=== PATIENT | female | born 1990 | race Two or more races ===

== ENCOUNTER → 2018-06-20 09:25 | Outpatient (CLI) | payer OTHER, SELFPAY ==
[2018-06-20 10:06] LABS: Absolute Lymphocyte Count 1.28 X10^3/ul (0.83-4.51); Absolute Neutrophil Count 5.5 X10^3/uL (2.0-7.7); Basophil# 0.02 X10^3/uL; Basophil% 0.3 % (0-1); Eosinophil# 0.21 X10^3/uL; Eosinophils% 2.9 % (0-5); Hematocrit 42.6 % (37-47); Hemoglobin 13.9 g/dl (12.0-15.0); Lymphocyte # 1.28 X10^3/ul (4.0); Lymphocyte % 17.5 % (19-41); Mean Corp Hgb Conc 32.6 g/gl (32-36); Mean Corpuscular Volume 85.9 fL (81-99); Mean Platelet Vol. 11.8 fl (6.2-12.0); Monocyte# 0.34 X10^3/uL; Monocyte% 4.6 % (0-10); Neutrophil # 5.45 X10^3/uL (2.7-7.7); Neutrophil % 74.4 % (47-70); Platelet Count 240 K/mm3 (150-450); RBC Distribution Width CV 12.7 % (11.6-14.6); RBC Distribution Width SD 39.3 fl (35.1-43.9); Red Blood Count 4.96 M/mm3 (4.2-5.4); White Blood Count 7.3 K/mm3 (4.4-11.0)
[2018-06-20 10:13] LABS: POSITIVE COUNT NO; POSITIVE DIFFERENTIAL NO; POSITIVE MORPHOLOGY NO
[2018-06-20 10:31] LABS: Vitamin B12 723 pg/mL (211-911); Vitamin D,25 Hydroxy 10.9 ng/mL (29.95-100.01)
[2018-06-20 10:40] LABS: ALB/GLOB Ratio 1.3 RATIO (0.9-2.4); AST(SGOT) 14 U/L (15-37); Alanine Aminotransfer ALT/SGPT 17 U/L (13-56); Albumin, Serum 4.7 g/dL (3.2-5.0); Alkaline Phosphatase 84 U/L (45-117); Anion Gap 7 (5-15); BUN 10 mg/dL (7-18); BUN/Creat Ratio 15.8 RATIO (10-20); Calcium,Total 8.8 mg/dL (8.5-10.1); Chloride 106 mmol/L (98-107); Creatinine, Serum 0.63 mg/dL (0.55-1.02); EST Glomerular Filtration Rate 121 mL/min (>60); Est Glom Filt Rate - Afr Amer 146 mL/min (>60); Ferritin 34 ng/mL (8-252); Globulin 3.6 g/dL (2.2-4.2); Glucose 81 mg/dL (74-106); Potassium 3.7 mmol/L (3.5-5.1); Protein, Total 8.3 g/dL (6.4-8.2); Sodium Level 139 mmol/L (136-145); T4 Free Direct 1.22 ng/dL (0.76-1.46); Thyroid Stim Hormone (TSH) 0.72 uIU/mL (0.358-3.74)
[2018-06-23 12:07] LABS: Anti-Centromere B Ab <0.2 AI (0.0-0.9); Anti-Chromatin <0.2 AI (0.0-0.9); Anti-Jo <0.2 AI (0.0-0.9); Anti-Scleroderma-70 AB <0.2 AI (0.0-0.9); RNP Ab <0.2 AI (0.0-0.9); SJOGREN'S Anti-SS-A test < 0.2 AI (0.0-0.9); SJOGREN'S Anti-SS-B test < 0.2 AI (0.0-0.9); Smith Ab <0.2 AI (0.0-0.9)
[2018-06-23 12:13] LABS: Anti-dsDNA Ab 7 IU/mL (0-9)
[2018-06-25 11:46] LABS: Immunoglobulin E 2 IU/mL (6-495)
== END ==
PROVIDERS: Family Provider Family Medicine; PCP Family Medicine; Referring Provider Family Medicine; Visit Provider Family Medicine
DX: K90.0 Celiac disease (principal); H04.129 Dry eye syndrome of unspecified lacrimal gland
CPT/HCPCS: 80053; 82306; 82607; 82728; 82746; 82785; 84439; 84443; 85025; 86225; 86235

== ENCOUNTER 2022-04-24 18:26 | Emergency (ER) | payer OTHER, SELFPAY ==
[2022-04-24 18:27] VITALS: BP 163/83; PULSE 125; RESP 16; TEMP 36.8; O2SAT 99; BMI 26.6
[2022-04-24] MEDS: Mag Hydrox/Al Hydrox/Simeth 30 ML UDC PO (19:36)
[2022-04-24] MEDS: 0.9% Normal Saline 1,000 ML 1000 ML IV (19:36)
--- NOTE | 2022-04-24 19:46 | ED.VIS.GI ---
HPI HPI - GI History of Present Illness Chief Complaint: Abd Pain Informant: patient Abdominal Pain/Flank Pain Onset: Yesterday Context: Sudden Onset Timing: Intermittent Quality: Burning Location: Epigastric, RUQ, LUQ and - (Chest) Worsened by: Food (Spicy foods) Relieved by: Antacids Nausea/Vomiting/Emesis GI Symptom: Negative for Nausea or Vomiting Diarrhea/Melena/Hematochezia GI Symptom: Negative for Diarrhea, Melena or Hematochezia Associated Symptoms Associated Symptoms: Positive for Frequency; Negative for Dysuria or Hematuria Narrative Narrative: Patient presents with upper abdominal pain that began yesterday. Patient states it has been intermittent. Patient describes it as burning. Patient states the pain is over the upper abdomen and radiates up into her chest. Patient states she has been trying to avoid spicy foods because she knows it will make it worse. Patient states she took some Tums which helped mildly. Patient denies any nausea or vomiting. Patient states her pain does radiate into her back. Patient admits to some urinary frequency. Patient denies any dysuria or hematuria. Patient states her last menstrual period started today. [facility] Medical History Celiac disease Home Medications omeprazole 20 mg capsule,delayed release 20 mg PO DAILY #30 CAPSULES 04/24/22 [Rx Last Taken Unknown] Allergy/AdvReac Type Severity Reaction Status Date / Time amoxicillin Allergy Hives Verified 04/24/22 18:27 Social History Smoking Status: Never smoker ROS ROS ED Constitutional Constitutional ED: Denies chills or fever(s) Eyes Eyes: Denies blurry vision or change in vision ENT ENT ED: Reports sore throat; Denies rhinorrhea Cardiovascular Cardiovascular: Reports chest pain; Denies palpitations Respiratory/Chest Respiratory/Chest: Reports cough; Denies dyspnea Gastrointestinal Gastrointestinal: Reports abdominal pain; Denies nausea or vomiting Genitourinary Genitourinary ED: Denies dysuria or hematuria Musculoskeletal Musculoskeletal: Reports back pain; Denies neck pain Integumentary Denies abscess or rash Neurologic Neurologic: Denies headache(s) or weakness Allergic/Immunologic Allergic/Immunologic ED: Denies mouth swelling or urticaria EXAM Physical Exam Const Vital Signs: 04/24/22 18:27 Temperature 98.3 F Temperature Source Temporal Pulse Rate 125 H Respiratory Rate 16 Blood Pressure 163/83 H Blood Pressure Mean 109 Pulse Ox 99 Oxygen Delivery Method Room Air Positive well nourished and well developed General Appearance ED: well developed and NAD HEENT Reports moist mucous membranes Neck supple and no JVD Resp normal respiratory effort and clear to auscultation bilaterally Cardio regular rate, regular rhythm and no murmurs GI normal to inspection, nondistended, normoactive bowel sounds Palpation: soft and tender epigastric; Negative for guarding or rebound tenderness present Extremity normal to inspection General Extremety ED: Negative for edema or tenderness General Extremity: Negative for edema Neuro oriented x3, CN's II-XII intact bilaterally, moves all extremities and no sensory deficits noted Sensorium / Orientation: alert Motor Exam: strength 5/5 throughout Psych mental status grossly normal Skin no rashes or lesions noted MDM MDM MDM Narrative Medical decision making narrative: Patient was given a GI cocktail here. Patient was given IV fluids. CBC was obtained and was reviewed. There is a mild leukocytosis of 12.1. Comprehensive metabolic profile was obtained and was reviewed. Chloride was 108, glucose was 108. The remainder was within normal limits. Lipase was obtained and was normal. Urinalysis was obtained. There is a leukocyte esterase of 100 and occult blood of 250. There is 0-5 white blood cells and 0-5 red blood cells. Serum hCG was obtained and was negative. Patient is feeling better on reevaluation. Patient states her pain has resolved. Patient was given a dose of omeprazole here. Patient was given a prescription for omeprazole. Patient was instructed to follow-up with her primary care physician in 5 to 7 days for reevaluation. Patient understood and was agreeable with the plan. All questions were answered. Lab Data Attestation: I reviewed the patient's lab results. Labs: Laboratory Results - last 24 hr 04/24/22 04/24/22 04/24/22 19:32 19:46 19:46 WBC 12.1 H RBC 4.99 Hgb 13.8 Hct 41.6 MCV 83.4 MCH 27.7 MCHC 33.2 RDW Std Deviation 38.4 RDW Coeff of Jean-Pierre 12.7 Plt Count 378 MPV 9.9 Immature Gran % (Auto) 0.300 Neut % (Auto) 83.3 H Lymph % (Auto) 10.3 L [place] % (Auto) 4.7 Eos % (Auto) 1.2 Baso % (Auto) 0.2 Absolute Neuts (auto) 10.0 H Absolute Lymphs (auto) 1.24 Nucleated RBC % 0 Sodium 140 Potassium 3.8 Chloride 108 H Carbon Dioxide 27.0 Anion Gap 5 BUN 7 Creatinine 0.57 Estim Creat Clear Calc 129.86 Est GFR (MDRD) Af Amer 159 Est GFR (MDRD) Non-Af 132 BUN/Creatinine Ratio 12.2 Glucose 108 H Calcium 9.4 Total Bilirubin 0.60 AST 12 L ALT 20 Alkaline Phosphatase 94 Total Protein 8.3 H Albumin 4.3 Globulin 4.0 Albumin/Globulin Ratio 1.1 Lipase 96 Serum , Qual Urine Color Straw Urine Clarity Sl. Cloudy Urine pH 7.0 Ur Specific [place] 1.010 Urine Protein Negative Urine Glucose (UA) Normal Urine Ketones Negative Urine Occult Blood 250 H Urine Nitrite Negative Urine Bilirubin Negative Urine Urobilinogen Normal Ur Leukocyte Esterase 100 H Urine RBC 0-5 SEEN Urine WBC 0-5 SEEN Ur Squamous Epith Cells 0-5 SEEN Urine Bacteria 1+ Urine Mucus 0 SEEN 04/24/22 19:46 WBC RBC Hgb Hct MCV MCH MCHC RDW Std Deviation RDW Coeff of [place] Plt Count MPV Immature Gran % (Auto) Neut % (Auto) Lymph % (Auto) [place] % (Auto) Eos % (Auto) Baso % (Auto) Absolute Neuts (auto) Absolute Lymphs (auto) Nucleated RBC % Sodium Potassium Chloride Carbon Dioxide Anion Gap BUN Creatinine Estim Creat Clear Calc Est GFR (MDRD) Af Amer Est GFR (MDRD) Non-Af BUN/Creatinine Ratio Glucose Calcium Total Bilirubin AST ALT Alkaline Phosphatase Total Protein Albumin Globulin Albumin/Globulin Ratio Lipase Serum , Qual NEGATIVE Urine Color Urine Clarity Urine pH Ur Specific [place] Urine Protein Urine Glucose (UA) Urine Ketones Urine Occult Blood Urine Nitrite Urine Bilirubin Urine Urobilinogen Ur Leukocyte Esterase Urine RBC Urine WBC Ur Squamous Epith Cells Urine Bacteria Urine Mucus Discharge Plan Triage Chief Complaint: Abd Pain Other Complaint: Shortness of Breath ED Provider: Audi Pichardo Dx/Rx/DC Orders Clinical Impression: Gastroesophageal reflux disease, Celiac disease Instructions: ED GERD (Adult) Prescriptions: New omeprazole [omeprazole] 20 MG capsule 20 mg PO DAILY Qty: 30 0RF Primary Care Provider: Audi Lopes Referrals: Audi Lopes MD [Primary Care Provider] - 5-7 Days Disposition Disposition: Home, Self Care
[2022-04-24 19:51] LABS: Mucous, Urine 0 SEEN /hpf (<or=2+)
[2022-04-24 19:52] LABS: Absolute Lymphocyte Count 1.24 X10^3/uL (0.83-4.51); Basophil# 0.03 X10^3/uL; Basophil% 0.2 % (0-1); Eosinophil# 0.14 X10^3/uL; Eosinophils% 1.2 % (0-5); Hematocrit 41.6 % (37-47); Hemoglobin 13.8 g/dL (12.0-15.0); Lymphocyte # 1.24 X10^3/ul (0.83-4.51); Lymphocyte % 10.3 % (19-41); Mean Corp Hgb Conc 33.2 g/dL (32-36); Mean Corpuscular Hgb 27.7 pg (27.0-32.0); Mean Corpuscular Volume 83.4 fL (81-99); Mean Platelet Vol. 9.9 fl (6.2-12.0); Monocyte# 0.57 X10^3/uL; Monocyte% 4.7 % (0-10); NRBC Flagged by Analyzer 0 % (0-5); Neutrophil # 10.04 X10^3/uL (2.7-7.7); Neutrophil % 83.3 % (47-70); Platelet Count 378 K/mm3 (150-450); RBC Distribution Width CV 12.7 % (11.6-14.6); RBC Distribution Width SD 38.4 fl (35.1-43.9); Red Blood Count 4.99 M/mm3 (4.2-5.4); White Blood Count 12.1 K/mm3 (4.4-11.0)
[2022-04-24 19:53] LABS: Color, Urine Straw (Yellow); Glucose, Dipstick Normal (Normal); Ketone-Dipstick Negative (Negative); Leukocyte Esterase-Dipstick 100 /ul (Negative); Nitrite-Dipstick Negative (Negative); Occult Blood-Urine 250 /ul (Negative); Protein-Dipstick Negative (Negative); Urine Bilirubin Dipstick Negative (Negative); Urine Clarity Sl. Cloudy (Clear); Urine Urobilinogen Normal (Normal)
[2022-04-24 20:00] LABS: Bacteria 1+ /hpf (None Seen); Red Blood Cells-Urine 0-5 SEEN /hpf (0-5); Squamous Epithelial Cells - UA 0-5 SEEN /hpf (5-10); White Blood Cells 0-5 SEEN /hpf (0-5)
[2022-04-24 20:02] LABS: Internal QC Validated? YES +Cl - CLEAR BKGD; Pregnancy, Serum, hCG Quali. NEGATIVE Negative
[2022-04-24 20:10] LABS: ALB/GLOB Ratio 1.1 RATIO (0.9-2.4); AST(SGOT) 12 U/L (15-37); Alanine Aminotransfer ALT/SGPT 20 U/L (13-56); Albumin, Serum 4.3 g/dL (3.2-5.0); Alkaline Phosphatase 94 U/L (45-117); Anion Gap 5 (5-15); BUN 7 mg/dL (7-18); BUN/Creat Ratio 12.2 RATIO (10-20); Calcium,Total 9.4 mg/dL (8.5-10.1); Chloride 108 mmol/L (98-107); Creatinine, Serum 0.57 mg/dL (0.55-1.02); EST Glomerular Filtration Rate 132 mL/min (>60); Est Glom Filt Rate - Afr Amer 159 mL/min (>60); Estimated Creatinine Clearance 129.86 ml/min; Glucose 108 mg/dL (74-106); Lipase 96 U/L (73-393); Potassium 3.8 mmol/L (3.5-5.1); Protein, Total 8.3 g/dL (6.4-8.2); Sodium Level 140 mmol/L (136-145)
[2022-04-24] MEDS: Pantoprazole Sodium 20 MG Tablet PO (21:31)
[2022-04-24 21:36] VITALS: BP 136/86; PULSE 95; RESP 18; O2SAT 100
== END 2022-04-24 21:36 | disposition home or self-care (01) ==
PROVIDERS: Emergency Provider Emergency Medicine; PCP Family Medicine; Visit Provider Emergency Medicine
DX: K21.9 Gastro-esophageal reflux disease without esophagitis (principal); K90.0 Celiac disease
CPT/HCPCS: 80053; 81001; 83690; 84703; 85025; 93005; 96360; 99284; J7030; A4216

== ENCOUNTER → 2022-05-03 | Outpatient (CLI) | payer OTHER, SELFPAY ==
[2022-05-03 12:17] LABS: Absolute Lymphocyte Count 1.05 X10^3/uL (0.83-4.51); Absolute Neutrophil Count 8.4 X10^3/uL (2.0-7.7); Basophil# 0.04 X10^3/uL; Basophil% 0.4 % (0-1); Eosinophil# 0.04 X10^3/uL; Eosinophils% 0.4 % (0-5); Hematocrit 43.4 % (37-47); Hemoglobin 14.2 g/dL (12.0-15.0); Lymphocyte # 1.05 X10^3/ul (0.83-4.51); Lymphocyte % 10.2 % (19-41); Mean Corp Hgb Conc 32.7 g/dL (32-36); Mean Corpuscular Hgb 27.6 pg (27.0-32.0); Mean Corpuscular Volume 84.4 fL (81-99); Mean Platelet Vol. 11.4 fl (6.2-12.0); Monocyte# 0.52 X10^3/uL; NRBC Flagged by Analyzer 0 % (0-5); Neutrophil % 81.4 % (47-70); Platelet Count 430 K/mm3 (150-450); RBC Distribution Width CV 12.7 % (11.6-14.6); Red Blood Count 5.14 M/mm3 (4.2-5.4); White Blood Count 10.3 K/mm3 (4.4-11.0)
[2022-05-03 13:06] LABS: ALB/GLOB Ratio 1.2 RATIO (0.9-2.4); AST(SGOT) 11 U/L (15-37); Alanine Aminotransfer ALT/SGPT 31 U/L (13-56); Albumin, Serum 4.4 g/dL (3.2-5.0); Alkaline Phosphatase 95 U/L (45-117); Anion Gap 9 (5-15); BUN 5 mg/dL (7-18); BUN/Creat Ratio 8.6 RATIO (10-20); Calcium,Total 9.8 mg/dL (8.5-10.1); Chloride 104 mmol/L (98-107); Creatinine, Serum 0.58 mg/dL (0.55-1.02); EST Glomerular Filtration Rate 129 mL/min (>60); Est Glom Filt Rate - Afr Amer 156 mL/min (>60); Globulin 3.6 g/dL (2.2-4.2); Glucose 82 mg/dL (74-106); Magnesium 1.7 mg/dL (1.6-2.6); Potassium 4.2 mmol/L (3.5-5.1); Sodium Level 139 mmol/L (136-145); Thyroid Stim Hormone (TSH) 0.58 uIU/mL (0.358-3.74)
== END | disposition home or self-care (01) ==
PROVIDERS: PCP Family Medicine; Visit Provider Nurse Practitioner Family
DX: R00.2 Palpitations (principal)
CPT/HCPCS: 36415; 80053; 83735; 84443; 85025

== ENCOUNTER 2022-05-14 16:50 | Outpatient (CLI) | payer OTHER, SELFPAY ==
[2022-05-19 18:07] LABS: Beef <0.10 kU/L (Class 0); Corn <0.10 kU/L (Class 0); Egg, Whole <0.10 kU/L (Class 0); Milk (Cow) <0.10 kU/L (Class 0); Peanut <0.10 kU/L (Class 0); Pork <0.10 kU/L (Class 0); Soybean <0.10 kU/L (Class 0); Wheat <0.10 kU/L (Class 0)
[2022-05-20 01:07] LABS: Ceruloplasmin 25.7 mg/dL (19.0-39.0); Immunoglobulin A 83 mg/dL (87-352); Immunoglobulin E 3 IU/mL (6-495); Immunoglobulin G 1242 mg/dL (586-1602); Immunoglobulin M 148 mg/dL (26-217)
[2022-05-20 19:07] LABS: ANTINUCLEAR ANTIBODIES DIRECT Positive (Negative); Alternaria tenuis <0.10 kU/L (Class 0); Anti-Centromere B Ab <0.2 AI (0.0-0.9); Anti-Chromatin <0.2 AI (0.0-0.9); Anti-Jo <0.2 AI (0.0-0.9); Anti-Scleroderma-70 AB <0.2 AI (0.0-0.9); Ash, White <0.10 kU/L (Class 0); Aspergillus fumigatus <0.10 kU/L (Class 0); Bermuda Grass <0.10 kU/L (Class 0); Birch <0.10 kU/L (Class 0); Black Walnut <0.10 kU/L (Class 0); Cat Hair / Dander,Stand <0.10 kU/L (Class 0); Cedar, Mountain <0.10 kU/L (Class 0); Cladosporium herbarum <0.10 kU/L (Class 0); Cockroach, American <0.10 kU/L (Class 0); Cottonwood <0.10 kU/L (Class 0); D farinae Mite <0.10 kU/L (Class 0); D pteronyssinus <0.10 kU/L (Class 0); Dog Epithelia <0.10 kU/L (Class 0); Elm, American White <0.10 kU/L (Class 0); Immunoglobulin E 3 IU/mL (6-495); Maple/Box Elder <0.10 kU/L (Class 0); Mouse Urine <0.10 kU/L (Class 0); Mulberry, White <0.10 kU/L (Class 0); Oak, White <0.10 kU/L (Class 0); Pecan <0.10 kU/L (Class 0); Penicillium Notatum <0.10 kU/L (Class 0); Pigweed, Rough <0.10 kU/L (Class 0); RNP Ab <0.2 AI (0.0-0.9); Ragweed, Short/Common <0.10 kU/L (Class 0); Russian Thistle <0.10 kU/L (Class 0); SJOGREN'S Anti-SS-A test < 0.2 AI (0.0-0.9); SJOGREN'S Anti-SS-B test < 0.2 AI (0.0-0.9); Sheep Sorrel <0.10 kU/L (Class 0); Smith Ab <0.2 AI (0.0-0.9); Sycamore, American <0.10 kU/L (Class 0); Timothy Grass <0.10 kU/L (Class 0)
[2022-05-21 19:45] LABS: Anti-dsDNA Ab 11 IU/mL (0-9)
[2022-05-21 19:46] LABS: Copper, Serum or Plasma 128 ug/dL (80-158)
[2022-05-21 19:47] LABS: Chocolate <0.10 kU/L (Class 0)
== END 2022-05-14 23:59 | disposition home or self-care (01) ==
LOC: MFPLAB 16:51
PROVIDERS: PCP Family Medicine; Visit Provider Family Medicine
DX: R00.2 Palpitations (principal); K21.9 Gastro-esophageal reflux disease without esophagitis
CPT/HCPCS: 82390; 82525; 82784; 82785; 86003; 86005; 86038; 86225; 86235

== ENCOUNTER → 2022-06-15 | Outpatient (CLI) | payer OTHER, SELFPAY ==
[2022-06-15 11:02] LABS: EXAGEN MAILED SPECIMEN
[2022-06-15 12:15] LABS: Absolute Lymphocyte Count 1.31 X10^3/uL (0.83-4.51); Absolute Neutrophil Count 11.6 X10^3/uL (2.0-7.7); Basophil# 0.05 X10^3/uL; Basophil% 0.4 % (0-1); Eosinophil# 0.14 X10^3/uL; Hematocrit 43.7 % (37-47); Hemoglobin 14.2 g/dL (12.0-15.0); Lymphocyte # 1.31 X10^3/ul (0.83-4.51); Lymphocyte % 9.6 % (19-41); Mean Corp Hgb Conc 32.5 g/dL (32-36); Mean Corpuscular Hgb 27.6 pg (27.0-32.0); Mean Platelet Vol. 12.7 fl (6.2-12.0); Monocyte# 0.42 X10^3/uL; Monocyte% 3.1 % (0-10); NRBC Flagged by Analyzer 0 % (0-5); Neutrophil # 11.61 X10^3/uL (2.7-7.7); Neutrophil % 85.5 % (47-70); Platelet Count 205 K/mm3 (150-450); RBC Distribution Width CV 12.7 % (11.6-14.6); Red Blood Count 5.14 M/mm3 (4.2-5.4); White Blood Count 13.6 K/mm3 (4.4-11.0)
[2022-06-15 12:18] LABS: International Normalized Ratio 1.2; Prothrombin Time (Protime)PT. 14.4 SECONDS (11.7-14.9)
[2022-06-15 12:19] LABS: Partial Thromboplast Time 31.1 Seconds (24.1-36.2)
[2022-06-15 12:23] LABS: Erythrocyte Sedimentation Rate 20 mm/hr (0-30)
[2022-06-15 12:29] LABS: Color, Urine Yellow (Yellow); Glucose, Dipstick Normal (Normal); Ketone-Dipstick Negative (Negative); Leukocyte Esterase-Dipstick Negative /ul (Negative); Nitrite-Dipstick Negative (Negative); Occult Blood-Urine Negative /ul (Negative); Protein-Dipstick Negative (Negative); Urine Bilirubin Dipstick Negative (Negative); Urine Clarity Clear (Clear); Urine Urobilinogen Normal (Normal)
[2022-06-15 13:02] LABS: ALB/GLOB Ratio 1.1 RATIO (0.9-2.4); AST(SGOT) 16 U/L (15-37); Alanine Aminotransfer ALT/SGPT 18 U/L (13-56); Albumin, Serum 4.3 g/dL (3.2-5.0); Alkaline Phosphatase 110 U/L (45-117); Anion Gap 9 (5-15); BUN 9 mg/dL (7-18); BUN/Creat Ratio 15.2 RATIO (10-20); CRP 4.36 mg/L (0.0-3.0); Calcium,Total 9.7 mg/dL (8.5-10.1); Chloride 103 mmol/L (98-107); Creatinine, Serum 0.59 mg/dL (0.55-1.02); EST Glomerular Filtration Rate 127 mL/min (>60); Est Glom Filt Rate - Afr Amer 153 mL/min (>60); Globulin 3.8 g/dL (2.2-4.2); Glucose 93 mg/dL (74-106); Potassium 3.7 mmol/L (3.5-5.1); Protein, Total 8.1 g/dL (6.4-8.2); Sodium Level 139 mmol/L (136-145)
[2022-06-15 13:09] LABS: Protein, Urine (Random) < 6.0 mg/dL (<11.9)
[2022-06-17 14:07] LABS: Dilute Prothrombin Time (dPT) 42.8 sec (0.0-47.6); Dilute Russell Viper Venom 40.3 sec (0.0-47.0); Thrombin Time 16.5 sec (0.0-23.0); dPT Confirm Ratio 0.97 Ratio (0.00-1.34)
[2022-06-17 15:27] LABS: Interpretation Comment: (.); PTT-LA 35.1 sec (0.0-43.5)
[2022-06-17 17:06] LABS: Hexagonal Phase Phospholipid 6 sec (0-11); Thrombin Time 16.3 sec (0.0-23.0)
== END | disposition home or self-care (01) ==
LOC: MTLAB 09:59
PROVIDERS: PCP Family Medicine; Referring Provider Internal Medicine Rheumatology; Visit Provider Internal Medicine Rheumatology
DX: R76.8 Other specified abnormal immunological findings in serum (principal); M35.00 Sjogren syndrome, unspecified
CPT/HCPCS: 80053; 81002; 82570; 84156; 85025; 85598; 85610; 85652; 85670; 85730; 86140

== ENCOUNTER → 2022-07-05 | Outpatient (CLI) | payer OTHER, SELFPAY ==
[2022-07-05 18:45] LABS: Vitamin D,25 Hydroxy 30.4 ng/mL
[2022-07-05 18:51] LABS: Ferritin 22 ng/mL (8-252); T4 Free Direct 1.19 ng/dL (0.76-1.46)
== END | disposition home or self-care (01) ==
LOC: MFPLAB 14:27
PROVIDERS: PCP Family Medicine; Referring Provider Family Medicine; Visit Provider Family Medicine
DX: I47.1 Supraventricular tachycardia (principal); D89.89 Other specified disorders involving the immune mechanism, not elsewhere classified; K90.0 Celiac disease; R25.1 Tremor, unspecified
CPT/HCPCS: 36415; 82306; 82728; 84439; 84443; 84481

== ENCOUNTER 2023-06-21 23:11 | Emergency (ER) | payer OTHER, SELFPAY ==
[2023-06-21 23:12] VITALS: BP 141/78; PULSE 102; RESP 16; TEMP 36.8; O2SAT 100; BMI 24.5
[2023-06-21 23:40] VITALS: BP 128/64; PULSE 94; RESP 18; O2SAT 99
--- NOTE | 2023-06-21 23:45 | EKG12_ITS ---
Test Reason : CP Blood Pressure : / mmHG Vent. Rate : 094 BPM Atrial Rate : 094 BPM P-R Int : 154 ms QRS Dur : 082 ms QT Int : 354 ms P-R-T Axes : 054 013 -04 degrees QTc Int : 442 ms Normal sinus rhythm NST WAVE ABNORMALITY Abnormal ECG Confirmed by Delonte Roth [id number]), editor magazine SUSAN BETANCOURT ([id number]) on 06/25/2023 7:12:57 AM Referred By: RILEY Confirmed By:Delonte Roth
[2023-06-21 23:57] LABS: Absolute Lymphocyte Count 2.27 X10^3/uL (0.83-4.51); Absolute Neutrophil Count 7.6 X10^3/uL (2.0-7.7); Basophil# 0.06 X10^3/uL; Basophil% 0.5 % (0-1); Eosinophil# 0.41 X10^3/uL; Eosinophils% 3.8 % (0-5); Hemoglobin 11.8 g/dL (12.0-15.0); Lymphocyte # 2.27 X10^3/ul (0.83-4.51); Lymphocyte % 20.8 % (19-41); Mean Corp Hgb Conc 31.9 g/dL (32-36); Mean Corpuscular Hgb 26.3 pg (27.0-32.0); Mean Corpuscular Volume 82.4 fL (81-99); Mean Platelet Vol. 11.1 fl (6.2-12.0); Monocyte# 0.59 X10^3/uL; Monocyte% 5.4 % (0-10); NRBC Flagged by Analyzer 0 % (0-5); Neutrophil # 7.56 X10^3/uL (2.7-7.7); Neutrophil % 69.2 % (47-70); Platelet Count 389 K/mm3 (150-450); RBC Distribution Width CV 12.6 % (11.6-14.6); RBC Distribution Width SD 38.1 fl (35.1-43.9); Red Blood Count 4.49 M/mm3 (4.2-5.4); White Blood Count 10.9 K/mm3 (4.4-11.0)
[2023-06-22 00:10] LABS: Anion Gap 8 (5-15); BUN 17 mg/dL (7-18); Calcium,Total 9.3 mg/dL (8.5-10.1); Chloride 103 mmol/L (98-107); Creatinine, Serum 0.77 mg/dL (0.55-1.02); EST Glomerular Filtration Rate 93 mL/min (>60); Est Glom Filt Rate - Afr Amer 112 mL/min (>60); Estimated Creatinine Clearance 95.26 ml/min; Glucose 108 mg/dL (74-106); Potassium 3.4 mmol/L (3.5-5.1); Sodium Level 139 mmol/L (136-145)
--- OUTSIDE RECORDS SUMMARY | 2023-06-22 00:10 | XMS RPT_ITS | CCD ---
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 Name Role Phone Unavailable Primary Care Provider UnavailKarin Leonard MD Primary Care Provider Karin Lopes MD Primary Care Provider [phone] ASPEN GORDILLO Referring Unavailable LOPES, KARIN A Primary Care Unavailable ANDERSON GORDILLOEN Referring Unavailable CHRISTY ALMONTE Attending Unavaila ble LOPES, KARIN A Primary Care Unavailable ASPEN GORDILLO Attending Unavailable LOPES, KARIN A Referring Unavailable LOPES, KARIN A Primary Care Unavailable KALKA, ASPEN Referring Unavailable LOPES, KARIN A Primary Care Unavailable ASPEN GORDILLO Attending Unavailable LOPES, KARIN A Primary Care Unavailable KALKA ASPEN Referring Unavailable LOPES, KARIN A Primary Care Unavailable KALKA, ASPEN Referring Unavailable LOPES, KARIN A Primary Care Unavailable Allergies Allergy Classification Reported Allergen(s) Allergy Type Date of Onset Reaction(s) Facility (10 sources) Amoxicillin; Translations: [AMOXICILLIN] Drug Allergy 10-11-2021 [facility] Medications Current Medications Medication Drug Class(es) Dates Sig (Normalized) Sig (Original) copper 313 mg drug implant (6 sources) Copper-containing Intrauterine Device Start: 03-09-2022 End: 03-06-2032 copper (PARAGARD) 380 square mm intrauterine device Indications: Encounter for IUD insertion 1 Intra Uterine Device by INTRAUTERINE route as directed. 1 Intra Uterine Device 0 03/09/2022 03/06/2032 Active Completed/Discontinued Medications Medication Drug Class(es) Dates Sig (Normalized) Sig (Original) cholecalciferol 0.05 mg oral tablet (3 sources) Vitamin D cholecalciferol (VITAMIN D-3) 50 mcg (2,000 unit) tablet fluticasone propionate 0.05 mg/actuat metered dose nasal spray (9 sources) Corticosteroid Start: 10-11-2021 take 2 spray(s) by mouth once daily fluticasone (FLONASE) 50 mcg/actuation nasal spray Use 2 Sprays in each nostril once daily. Rinse mouth after use. 11.1 mL 0 10/11/2021 Active Problems Problem Classification Problem Date Documented Da te Episodic/Chronic Abdominal pain (3 sources) Upper abdominal pain; Translations: [Right upper quadrant pain] Onset: 3 03-08-2023 Episodic Contraceptive and procreative management (3 sources) Oral contraception; Translations: [Encounter for surveillance of contraceptive pills] Episodic Esophageal disorders (3 sources) Gastroesophageal reflux disease; Translations: [Gastro-esophageal reflux disease without esophagitis] Onset: 3 Chronic Nausea and vomiting (1 source) Nausea; Translations: [Nausea] Onset: 4 Episodic Other gastrointestinal disorders (1 source) Celiac disease; Translations: [Celiac disease] Onset: 4 Chronic Other gastrointestinal disorders (1 source) Personal history of other diseases of the digestive system; Translations: [History of celiac disease] Onset: 3 Episodic Other liver diseases (1 source) Alkaline phosphatase raised; Translations: [Abnormal levels of other serum enzymes] 03-13-2023 Episodic Other liver diseases (1 source) Abnormal levels of other serum enzymes; Translations: [Elevated alkaline phosphatase level] Onset: 3 Episodic Other lower respiratory disease (1 source) Dyspnea; Translations: [Shortness of breath] Episodic Other screening for suspected conditions (not mental disorders or infectious disease) (1 source) Cancer cervix screening status; Translations: [Encounter for screening for malignant neoplasm of cervix] Episodic Otitis media and related conditions (1 source) Dysfunction of right eustachian tube; Translations: [Other specified disorders of Eustachian tube, right ear] Episodic Results Test Name Value Interpretation Reference Range Facil ity Vital Signs Date Time Vital Sign Value Performing Clinician Camilla barboza 03-09-2022 09:53-0500 Diastolic blood pressure 66 mm[Hg] Miguelina Franks APRN.STUDENT LIFE ADVISOR Work Phone: [facility] 03-09-2022 09:53-0500 Heart rate 82 /min Miguelina Franks APRN.STUDENT LIFE ADVISOR Work Phone: [facility] 03-09-2022 09:53-0500 SaO2% (BldA) [Mass fraction] 98 % Miguelina Franks APRN.STUDENT LIFE ADVISOR Work Phone: [facility] 03-09-2022 09:53-0500 Systolic blood pressure 130 mm[Hg] Miguelina Franks APRN.STUDENT LIFE ADVISOR Work Phone: [facility] 03-09-2022 09:24-0500 Body weight 74.48 kg Miguelina Franks APRN.STUDENT LIFE ADVISOR Work Phone: [facility] 03-09-2022 09:24-0500 Respiratory rate 20 /min Miguelina Franks APRN.STUDENT LIFE ADVISOR Work Phone: [facility] 12-11-2021 15:26-0400 Body height 165.1 cm Shauna [place] SPEECH SCIENTIST.STUDENT LIFE ADVISOR Work Phone: [facility] 12-11-2021 15:26-0400 Body weight 71.67 kg Shauna Natasha SPEECH SCIENTIST.STUDENT LIFE ADVISOR Work Phone: [facility] 12-11-2021 15:26-0400 Diastolic blood pressure 82 mm[Hg] Shauna [place] SPEECH SCIENTIST.STUDENT LIFE ADVISOR Work Phone: [facility] 12-11-2021 15:26-0400 Systolic blood pressure 130 mm[Hg] Shauna Natasha SPEECH SCIENTIST.STUDENT LIFE ADVISOR Work Phone: [facility] 10-11-2021 17:04-0400 Body temperature 99.3 [degF] Erika Carolina SPEECH SCIENTIST.STUDENT LIFE ADVISOR Work Phone: [facility] 10-11-2021 17:04-0400 Body weight 69.4 kg Erika Carolina SPEECH SCIENTIST.STUDENT LIFE ADVISOR Work Phone: [facility] 10-11-2021 17:04-0400 Diastolic blood pressure 80 mm[Hg] Erika Carolina SPEECH SCIENTIST.STUDENT LIFE ADVISOR Work Phone: [facility] 10-11-2021 17:04-0400 Heart rate 97 /min Erika Carolina SPEECH SCIENTIST.STUDENT LIFE ADVISOR Work Phone: [facility] 10-11-2021 17:04-0400 Respiratory rate 21 /min Erika Carolina SPEECH SCIENTIST.STUDENT LIFE ADVISOR Work Phone: [facility] 10-11-2021 17:04-0400 SaO2% (BldA) [Mass fraction] 99 % Erika Carolina SPEECH SCIENTIST.STUDENT LIFE ADVISOR Work Phone: [facility] 10-11-2021 17:04-0400 Systolic blood pressure 122 mm[Hg] Erika Carolina SPEECH SCIENTIST.STUDENT LIFE ADVISOR Work Phone: [facility] Encounters Encounter Date Encounter Type Care Provider Facility Start: 05-03-2023 End: 05-03-2023 ambulatory ASPEN GORDILLO Facility:[facility] Start: 04-26-2023 End: 04-26-2023 ambulatory ASPEN GORDILLO Facility:[facility] Start: 04-10-2023 End: 04-11-2023 ambulatory ASPEN GORDILLO Facility:[facility] Start: 03-13-2023 Orders Only Aspen Gordillo PA-C Work Phone: [facility] [place] Procedures Date Procedure Procedure Detail Performing Clinician Start: 03-08-2023 Us abdominal real ti me w/image limited Aspen Gordillo PA-C Work Phone: Start: 03-09-2022 Urine test visual color cmprsn meths Miguelina Franks SPEECH SCIENTIST.STUDENT LIFE ADVISOR Work Phone: Plan of Treatment Date Care Activity Detail Author Start: 12-11-2026 HPV Testing HPV Testing [facility] Start: 12-11-2026 PAP TESTING PAP TESTING [facility] Start: 12-11-2024 PAP TESTING PAP TESTING [facility] Start: 04-10-2023 End: 07-10-2023 ALK PHOS ISOENZYM BL ALK PHOS ISOENZYM BL Lab Routine Elevated alkaline phosphatase level Expected: 04/10/2023, Expires: 07/10/2023 [facility] Work Phone: Payers Date Payer Category Payer Private Health Insurance EHP AET NA EHP PLUS STAFF/NON STAFF / EHP Plus [facility] [id number] 2021-Present [address] [place] [phone] PPO [id number] 2021 Private Health Insurance [id number] 2021 Unknown [id number] Social History Date Type Detail Facility Start: 10-11-2021 End: 12-11-2021 Tobacco smoking status NHIS Never smoked tobacco [facility] Start: 10-11-2021 End: 12-11-2021 Tobacco use and exposure Smokeless tobacco non-user [facility] Start: 1990 Sex Assigned At Not on file [facility] Start: 10-01-2021 End: 12-11-2021 Exposure to SARS-CoV-2 (event) Not sure [facility] Start: 12-11-2021 End: 02-08-2023 Alcohol intake Current drinker of alcohol (finding) [facility] Start: 12-11-2021 History SDOH Alcohol Comment rare [facility] Start: 1990 Sex Assigned At Female [facility] Start: 02-05-2023 End: 02-08-2023 History of Social function [facility] Start: 02-05-2023 End: 02-08-2023 Tobacco use panel [facility] National Score (1-10 0), lower number is lower risk 64 [facility] Start: 11-27-2021 Gender identity Identifies as female gender (finding) [facility] Start: 11-27-2021 Sexual orientation Heterosexual (liss ramirez) [facility] Clinical Notes 10-11-2021 to 05-03-2023 Erika Corrigan RDMS - 03/08/2023 8:30 AM Jacqui Carolina APRN.STUDENT LIFE ADVISOR - 04/24/2022 6:16 PM Morro Franks APRN.CNP - 03/09/2022 9:03 AM ESTPatient Instructions Note Date & Type Note Facility 05-03-2023 Note HNO ID: [id number] Author: BHUPENDRA DUPREE RT(R) Service: Nuclear Medicine Author Type: Technologist Type: Progress Notes Filed: 05/03/2023 15:18 Note Text: RADIOLOGY SERVICE PROGRESS NOTE SERVICE DATE: 05/03/2023 SERVICE TIME: 13:50 PM PATIENT IDENTITY VERIFICATION COMPLETED USING TWO (2) STANDARD IDENTIFIERS: Name and Date of confirmed by patient verbally FALL SCREENING: Has the patient had 2 falls in the last year or 1 fall with injury or currently using an Ambulatory Assistive Device (Walker, Cane, Wheelchair, Crutches, etc.)? No PATIENT GENDER DATA: .female : No status: No ALLERGIES: Reviewed and unchanged MEDICATIONS REVIEWED: No PATIENT RELEVANT IMPLANT DATA REVIEWED: Not Applicable CREATININE: Creatinine Date Value Ref Range Status 03/08/2023 0.53 (L) 0.58 - 0.96 mg/dL Final Estimated Glomerular Filtration Rate Date Value Ref Range Status 03/08/2023 128 >=60 mL/min/1.73m? Final Comment: Estimated Glomerular Filtration Rate (eGFR) is calculated using the 2020 CKD-EPI creatinine equation. This equation utilizes serum creatinine, sex, and age as parameters. The creatinine assay has traceable calibration to isotope dilution-mass spectrometry. Refer to KDIGO guidelines for clinical interpretation. In patients with unstable renal function, e.g. those with acute kidney injury, the eGFR may not accurately reflect actual GFR. P.O.C.T. RESULTS: N/A May 03, [address] PERFORMED: No IV SITE: Ambulatory: A peripheral IV was started in the Right antecubital site with a Angio cath: 24 gauge. POST EXAM PIV STATUS: Discontinued PROCEDURE TYPE: NM INJECT: Hepatobiliary with Gallbladder EF. 6 mCi Tc99m MDP. CCK 1.33 micrograms intravenous at 15:10. ADMINISTRATION TIME: 14:05 PATIENT DISCHARGED TO: Ambulatory patient, left NM department area. A Diagnostic radioactive procedure has taken place, with no further precautions necessary other than routine body substance precautions. More information regarding radiation safety can be found using this link: [email or web address] SIGNATURE: RT Miguel(R) PATIENT NAME: Hollie Baker DATE: May 03, 2023 TIME: 2:15 PM PAGER/CONTACT #: [facility] 04-26-2023 Note HNO ID: [id number] Author: ASPEN GORDILLO PA-C Service: ? Author Type: Physician Box Toe Stitcher Type: Progress Notes Filed: 04/26/2023 07:39 Note Text: VIRTUAL VISIT FOLLOW UP I have communicated my name and active licensure. The patient's identity and physical location were verified at the time of this visit. 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 I had a virtual visit with Ms. Baker today for follow up of GERD, upper abd pain, Celiac. UPDATED HISTORY: Started on Prilosec 20 mg daily which she includes is working well for GERD sx. Still noticing very restricted diet and unable to tolerate much. Has identified trigger foods of higher fat foods. When eating she will experience overall sour stomach sensations and generalized discomfort. Weight has been stable. Denies emesis, early satiety, gas, bloating, changes in bowel habits, melena. RUQ US 02/2023 IMPRESSION: Unremarkable sonographic exam of the upper abdomen. EGD 01/2023 Impression: - Z-line regular, 37 cm from the incisors. - Normal esophagus. - Normal stomach. - Normal examined duodenum. Biopsied. Component FINAL DIAGNOSIS A. Duodenum, biopsy: - Duodenal mucosa with patchy borderline increase of intraepithelial lymphocytes and preserved villous architecture. - No evidence of villous atrophy. B. Duodenum, bulb, biopsy: - Duodenal mucosa with patchy mild increase of intraepithelial lymphocytes and preserved villous architecture. - No evidence of villous atrophy. OV 01/2023 Hollie Baker is a 32 year old female who presents for GERD (Labs in scanning and CE). Dx with Celiac via EGD 2009. Admits to issues with GERD since 04/2022. Adhering to complete GF diet. Taking Pepcid 20 mg daily. Feels as though med could be working better for her. Lost 20 lbs since sx started, unintentionally. Notes bilateral upper abd pain. Reports she has been dx with Sjogren's in the past year, following with Rheum, got 2nd opinion to help confirm this diagnosis. Trying to limit fatty foods, elevating head of bed with minimal relief. Denies N/V, changes in bowel habits, melena, NSAIDs. 01/2023 CBC WNL PAST MEDICAL HISTORY Diagnosis Date Celiac disease Tachycardia PAST SURGICAL HISTORY Procedure Laterality Date EGD W/O BRSH SPEC VARICIES INJ 02/08/2023 Duodenal mucosa with patchy mild increase of intraepithelial lymphocytes and preserved villous architecture ENDOSCOPY PROC 2009 upper- diacnosed with celiac PARAGARD IUD 03/09/2022 FAMILY HISTORY Problem Relation Age of Onset Hypertension Mother Heart Failure Father Colon Cancer No Family History Social History Tobacco Use Smoking status: Never Smokeless tobacco: Never Vaping Use Vaping Use: Never used Substance Use Topics Alcohol use: Yes Comment: rare Drug use: Never Current Outpatient Medications Medication Sig Dispense Refill multivit with min-folic acid (MULTIVITAMIN GUMMIES) 200 mcg chew cholecalciferol (VITAMIN D-3) 50 mcg (2,000 unit) tablet MELATONIN 5 MG GUMMY Omeprazole Magnesium (PRILOSEC OTC) 20 mg tablet Take 1 tablet by mouth once daily. On empty stomach at least 30 minutes before eating. 90 tablet 1 metoprolol succinate ER (TOPROL XL) 25 mg 24 hr tablet Take 1 tablet by mouth once daily. 90 tablet 8 copper (PARAGARD) 380 square mm intrauterine device 1 Intra Uterine Device by INTRAUTERINE route as directed. 1 Intra Uterine Device 0 fluticasone (FLONASE) 50 mcg/actuation nasal spray Use 2 Sprays in each nostril once daily. Rinse mouth after use. 11.1 mL 0 No current facility-administered medications for this visit. ALLERGIES Allergen Reactions Amoxicillin Hives REVIEW OF SYSTEMS: PAIN ASSESSMENT: See HPI GENERAL: No weight loss, malaise or fevers RESPIRATORY: Negative for cough, hemoptysis, wheezing, COPD, dyspnea or shortness of breath CARDIOVASCULAR: Negative for chest pain, leg swelling, hypertension, CHF or palpitations GI: See HPI : No history of dysuria, frequency or incontinence LEAD SOFTWARE QA ENGINEER: Negative for abnormal vaginal bleeding, abnormal vaginal discharge PHYSICAL FINDINGS OF NOTE: General - Normal, healthy, cooperative, in no acute distress Able to interact verbally by video conference Psych - ORIENTATION: normal to time place, person and situation Mood/Affect: AFFECT AND MOOD: Normal Head/Neuro - Normal size and shape Facial appearance normal Pulmonary - respiratory effort normal Cardiovascular - patient describes extremities normal, warm, no cyanosis,no clubbing, and no edema Abdominal - Not performed Skin - abnormal lesions not visualized Motor - patient seen sitting with Normal appearing strength and coordination Anorectal exam - Not Performed Assessment/Plan (R10.84) Generalized postprandial abdominal pain (more content not included)... [facility] 03-08-2023 Note HNO ID: [id number] Author: Erika Corrigan RDMS Service: ? Author Type: Clinical Dietetic Technician Type: Progress Notes Filed: 03/08/2023 11:55 AM Note Text: Radiology Service Progress Note PATIENT NAME: Hollie Baker DATE OF SERVICE: March 08, 2023 TIME: 11:54 AM PATIENT IDENTITY VERIFICATION COMPLETED USING TWO (2) IDENTIFIERS: Name and Date of confirmed by patient verbally. FALL SCREENING: Has the patient had 2 falls in the last year or 1 fall with injury or currently using an Ambulatory Assistive Device (Walker, Cane, Wheelchair, Crutches, etc.)? No PATIENT GENDER DATA: Female. status: : No status: NO. PATIENT RELEVANT IMPLANT DATA REVIEWED: Not Applicable RADIOLOGY DEPARTMENT: Ultrasound PERIPHERAL IV DATA: Not applicable SIGNED BY: Erika Corrigan RDMS RVT March 08, 2023 11:54 AM [facility] 03-08-2023 History of Presen t illness Narrative Radiology Service Progress Note PATIENT NAME: Hollie Baker DATE OF SERVICE: March 08, 2023 TIME: 11:54 AM PATIENT IDENTITY VERIFICATION COMPLETED USING TWO (2) IDENTIFIERS: Name and Date of confirmed by patient verbally. FALL SCREENING: Has the patient had 2 falls in the last year or 1 fall with injury or currently using an Ambulatory Assistive Device (Walker, Cane, Wheelchair, Crutches, etc.)? No PATIENT GENDER DATA: Female. status: : No status: NO. PATIENT RELEVANT IMPLANT DATA REVIEWED: Not Applicable RADIOLOGY DEPARTMENT: Ultrasound PERIPHERAL IV DATA: Not applicable SIGNED BY: JOSHUA WiseT March 08, 2023 11:54 AM documented in this encounter [facility] 02-08-2023 Note HNO ID: [id number] Author: Maggie Manley, RN Service: ? Author Type: Registered Nurse Type: Nursing Progress Note Filed: 02/08/2023 7:44 AM Note Text: Dr. Almonte at bedside to speak to patient. Verbalizes understanding. OK to d/c when ready. [facility] 02-05-2023 Note HNO ID: [id number] Author: Aspen Gordillo PA-C Service: ? Author Type: Physician Box Toe Stitcher Type: Progress Notes Filed: 02/05/2023 11:32 AM Note Text: CHIEF COMPLAINT: Patient presents with: GERD: Labs in scanning and CE HPI: Hlolie Baker is a 32 year old female who presents for GERD (Labs in scanning and CE). Dx with Celiac via EGD 2009. Admits to issues with GERD since 04/2022. Adhering to complete GF diet. Taking Pepcid 20 mg daily. Feels as though med could be working better for her. Lost 20 lbs since sx started, unintentionally. Notes bilateral upper abd pain. Reports she has been dx with Sjogren's in the past year, following with Rheum, got 2nd opinion to help confirm this diagnosis. Trying to limit fatty foods, elevating head of bed with minimal relief. Denies N/V, changes in bowel habits, melena, NSAIDs. 01/2023 CBC WNL Record Review: [facility] / Outside records reviewed. PAST MEDICAL HISTORY Diagnosis Date Celiac disease Tachycardia PAST SURGICAL HISTORY Procedure Laterality Date ENDOSCOPY PROC 2009 upper- diacnosed with celiac PARAGARD IUD 03/09/2022 Allergies: ALLERGIES Allergen Reactions Amoxicillin Hives Medications: multivit with min-folic acid (MULTIVITAMIN GUMMIES) 200 mcg chew cholecalciferol (VITAMIN D-3) 50 mcg (2,000 unit) tablet MELATONIN 5 MG GUMMY famotidine (PEPCID) 20 mg tablet 1 tab(s) orally once a day metoprolol succinate ER (TOPROL XL) 25 mg 24 hr tablet Take 1 tablet by mouth once daily. copper (PARAGARD) 380 square mm intrauterine device 1 Intra Uterine Device by INTRAUTERINE route as directed. fluticasone (FLONASE) 50 mcg/actuation nasal spray Use 2 Sprays in each nostril once daily. Rinse mouth after use. FAMILY HISTORY Problem Relation Age of Onset Hypertension Mother Heart Failure Father Colon Cancer No Family History Employer And Job Title: None on file Years Of Education Completed: Not specified Marital Status: Social History Tobacco Use Smoking status: Never Smokeless tobacco: Never Vaping Use Vaping Use: Never used Substance Use Topics Alcohol use: Yes Comment: rare Drug use: Never Review of Systems: Review of Systems Constitutional: Positive for fatigue. HENT: Positive for trouble swallowing. Gastrointestinal: Positive for abdominal pain and nausea. Heartburn All other systems reviewed and are negative. Are you taking any blood thinners? No Physical Examination: BP 120/70 Pulse 97 Ht 165.1 cm (5' 5 ) Wt 66.7 kg (147 lb) LMP 03/19/2022 (Exact Date) BMI 24.46 kg/m? Physical Exam Constitutional: General: She is not in acute distress. Appearance: Normal appearance. She is normal weight. She is not ill-appearing, toxic-appearing or diaphoretic. HENT: Head: Normocephalic and atraumatic. Nose: Nose normal. Eyes: General: No scleral icterus. Right eye: No discharge. Left eye: No discharge. Extraocular Movements: Extraocular movements intact. Conjunctiva/sclera: Conjunctivae normal. Pupils: Pupils are equal, round, and reactive to light. Cardiovascular: Rate and Rhythm: Normal rate and regular rhythm. Pulses: Normal pulses. Heart sounds: Normal heart sounds. No murmur heard. No friction rub. No gallop. Pulmonary: Effort: No respiratory distress. Breath sounds: Normal breath sounds. No stridor. No wheezing, rhonchi or rales. Chest: Chest wall: No tenderness. Abdominal: General: Abdomen is flat. Bowel sounds are normal. There is no distension. Palpations: Abdomen is soft. There is no mass. Tenderness: There is no abdominal tenderness. There is no right CVA tenderness, left CVA tenderness, guarding or rebound. Hernia: No hernia is present. Musculoskeletal: General: Normal range of motion. Cervical back: Normal range of motion and neck supple. Skin: General: Skin is warm and dry. Neurological: General: No focal deficit present. Mental Status: She is alert and oriented to person, place, and time. Psychiatric: Mood and Affect: Mood normal. Behavior: Behavior normal. Assessment/Plan (R10.11, R10.12) Bilateral upper abdominal pain (primary encounter diagnosis) (K21.9) Gastroesophageal reflux disease, unspecified whether esophagitis present (Z87.19) History of celiac disease 1. Bilateral upper abdominal pain - US ABD RIGHT UPPER QUADRANT; Future - EGD DIAGNOSTIC; Future - Will start on Prilosec 20 mg daily, may continue Pepcid PRN - EGD to r/o Schatzki's, EoE, active GERD, H. Pylori, ensure Celiac is in good control - Discussed GERD precautions and provided printed edu handout - Obtain RUQ US to r/o biliary disease 2. Gastroesophageal reflux disease, unspecified whether esophagitis present - EGD DIAGNOSTIC; Future 3. History of celiac disease - VITAMIN B12 BLOOD; Future - FOLATE SERUM; Future - COMP METABOLIC PANEL; Future - IRON + TIBC; Future - TRANSGLUTAMINASE ABS; Future - EGD DIAGNOSTIC; F (more content not included)... [facility] 04-24-2022 History of Presen t illness Narrative Called to triage by [facility] staff for complaints of Intense heartburn x 3 days. Intermittent. SOB. Discussed with patient my concern for possible ACS, especially given she is a female patient. [facility] does not have EKG Patient directed to ED Declines [facility] documented in this encounter [facility] 03-09-2022 Instructions Alejandra Cantrell RN - 03/09/2022 9:04 AM EST POST IUD INSTRUCTIONS You may have irregular bleeding during the first 3 months of use. You may have mild-severe cramping for the next 48 hours. You may use over the counter medication (Motrin, Tylenol) as needed. Your IUD must be removed or replaced based on the following table: IUD Type Removed or replaced within: Dominique 3 years Kyleena 5 years Mirena 8 years Paragard 10 years Call my office for signs/symptoms of infection such as severe cramping, fever, or unusual bleeding. Check for string placement as instructed by your doctor. If you have any additional questions, please contact the office. documented in this encounter [facility] 03-09-2022 History of Presen t illness Narrative Medical Attendant offered:Patient declines Hollie presents today for IUD insertion for contraception. Patient's last menstrual period was 11/30/2021 (exact date). GC/chlamydia: Not done: no risk factors and/or patient declines screening test: negative Taking OCP and using condoms Side effects including irregular bleeding were discussed with the patient. The patient understands that it should be removed in 10 years or sooner if the patient desires a . IUD source: office provided IUD lot #: [id number] Exp date: 11/13/2027 UNIVERSAL PROTOCOL / SAFETY CHECKLIST Procedure to be Performed: Paragard IUD insertion Sign In: A Moment of CARE was completed. Personnel directly involved with the procedure wore the appropriate PPE (Personal Protective Equipment). Patient/Surrogate Stated/Verified: PATIENT VERIFIED(optional for EMERGENT procedures): Patient name, Date of , Relevant allergies, and The intended procedure Time Out Communication: Intended patient and procedure match the source documents. Consent documented and matches the intended procedure. Relevant labs, photos, and/or imaging studies have been reviewed. Implant(s) inserted: Correct implant(s) confirmed including size and side. and Expiration date(s) reviewed. Sign Out: SIGN OUT (optional for EMERGENT procedures): All instruments, equipment, possible retained foreign bodies accounted for. Post-procedure follow-up management communicated and Plan of Care Visit completed when applicable. The cervix was prepped with betadine. The uterus sounded to 7 cm and the uterus is Midposition.. Using sterile technique, the ParaGard IUD was inserted without difficulty and the string was cut to 2.5cm from the external os of the cervix. Patient tolerated procedure well. PLAN: Patient was advised to observe for signs and symptoms of infection including but not limited to fever, malodorous vaginal discharge and/or pain. The patient was told to check the string monthly for accurate placement. Bleeding expectations were reviewed. Follow up after next menses for string check. Miguelina Franks APRN.CNP documented in this encounter [facility] 02-15-2022 Miscellaneous Notes Spoke with pt and discussed use of Cytotec and offered to schedule appt. For insertion. Pt was currently at work and wanted to call back to schedule appt. Jaye Rodriguez LPN Paragard order filed and cytotec sent. Please review cytotec instruction with pt. Please call pt to set up appt. Shauna Kaur APRN.CNP documented in this encounter [facility] 01-12-2022 Miscellaneous Notes Due to market staffing shortages and rising Covid cases, many local pharmacies are closed or delayed for business. In this case, we are unable to contact them for uysicsyh-iz-xyjejeim transfers and patient is unable to fill their prescriptions with those other pharmacies. Please send new ERx to [facility] and we can try to fill for patient instead. Once approved, please discontinue old orders in Epic to mitigate any duplicate therapy. Patient requests refill of: Requested Prescriptions Pending Prescriptions Disp Refills levonorgestrel-ethinyl estradiol (ALTAVERA, 28,) 0.15-0.03 mg per tab 84 tablet 1 Sig: Take 1 tablet by mouth once daily. Thank you! [facility] [phone] (phone) [phone] (fax) documented in this encounter [facility] 12-11-2021 History of Presen t illness Narrative Hollie is a 31 year old who presents for an annual gynecologic exam without complaints. She is interest in a different type of control. She is thinking maybe a device. Information discussed and pamphlet given. Menses: cycles every 21-24 days and 5-6 days of flow. Contraception: combined hormonal contraceptives HPV vaccine: No Last Pap: never Last mammogram: never Sexually active: Yes Patient concerns for STD exposure: No. Pain with intercourse: No Postcoital bleeding: No OB History T0 L0 SAB0 IAB0 Ectopic0 Multiple0 Live Births0 Displayer Merchandise History LMP: 11/30/2021 (Exact Date), Having periods Age at Menarche: Age at First : Age at Menopause: Displayer Merchandise History Comments: Sexual Activity: Yes; Male Contraception: Pill PAST MEDICAL HISTORY Diagnosis Date Celiac disease PAST SURGICAL HISTORY Procedure Laterality Date ENDOSCOPY PROC 2010 upper- diacnosed with celiac FAMILY HISTORY Problem Relation Age of Onset Hypertension Mother Heart Failure Father SOCIAL HISTORY Social History Tobacco Use Smoking status: Never Smokeless tobacco: Never Vaping Use Vaping Use: Never used Substance Use Topics Alcohol use: Yes Comment: rare Drug use: Never REVIEW OF SYSTEMS Abdomen: No abdominal pain, nausea, vomiting, diarrhea, or constipation. No bloating, early satiety, indigestion, or increased flatulence. Bladder: No dysuria, gross hematuria, urinary frequency, urinary urgency, or incontinence. Breast: No breast lumps, nipple d/c, overlying skin changes, redness or skin retraction. Allergies and current medication updated:Yes EXAM: Ht 5' 5 (1.65m) Wt 158 lb (71.7kg) LMP 11/30/2021 BMI 26.29 kg/(m^2). GENERAL: pleasant, female in no apparent distress HEENT: Normocephalic, atraumatic, mucus membranes moist, and no lesions NECK: Supple, full range of motion, no adenopathy, and thyroid normal DERMATOLOGY: Normal, without lesions, non-icteric, and non-hirsute BREAST: soft, non-tender, symmetric, no dominant mass, normal nipple-areolar complex, no lymphadenopathy, and no nipple discharge CHEST: Normal inspiratory effort ABDOMEN: soft, non-tender, and no masses PELVIC: external genitalia normal, normal Bartholin's glands, urethra, [place]'s glands, no vulvar lesions, no cervical lesions, good vaginal support, physiologic discharge present, normal appearing perineal body and perianal region BIMANUAL: uterus normal size, shape and consistency, no adnexal masses, and non-tender RECTOVAGINAL: deferred. NEURO: alert and oriented x3,exam grossly non-focal EXTREMITIES: normal ASSESSMENT/PLAN: 1) Health maintenance: Pap done with reflex HPV. Mammogram starting age 40. Nutrition, exercise and routine health maintenance exams reviewed. Calcium/Vitamin D supplementation information provided. 2) Contraception: combined hormonal contraceptives. Contraceptive options reviewed and information provided. 3) STD screening: Declined STD check. 4) Follow up one year or sooner as needed Shauna Kaur APRN.CAMPBELL documented in this encounter [facility] 10-11-2021 History of Presen t illness Narrative This note was created using [employer]. Subjective Hollie Baker is a 31 year old female. 31 year old female with no PMH on file presents with pain in right ear Acute onset 5 days Locates pain inside right ear with muffled and clogged feeling Denies fever/chills, SOB, CP, congestion, headache Utilized tylenol sinus medication with mild relief States she works from home. No loss of work or exposure concerns The history is provided by the patient. No sales and production manager was used. Ear Pain This is a new problem. The current episode started in the past 7 days. The problem occurs constantly. The problem has been gradually worsening. Pertinent negatives include no abdominal pain, anorexia, arthralgias, change in bowel habit, chest pain, chills, congestion, coughing, diaphoresis, fatigue, fever, headaches, joint swelling, myalgias, nausea, neck pain, numbness, rash, sore throat, swollen glands, urinary symptoms, vertigo, visual change, vomiting or weakness. Nothing aggravates the symptoms. She has tried acetaminophen for the symptoms. The treatment provided mild relief. No past medical history on file. No past surgical history on file. ALLERGIES Amoxicillin MEDICATIONS levonorgestrel/ethin.estradiol (ALTAVERA, 28, ORAL) Take by mouth. fluticasone (FLONASE) 50 mcg/actuation nasal spray Use 2 Sprays in each nostril once daily. Rinse mouth after use. predniSONE (DELTASONE) 10 mg tablet Take 4 tabs daily for 3 days, then 2 tabs daily for 3 days, then 1 tab daily for 3 days with food. No family history on file. Social History Tobacco Use Smoking status: Never Smoker Smokeless tobacco: Never Used Substance Use Topics Alcohol use: Not on file Drug use: Not on file Review of Systems Constitutional: Negative for activity change, chills, diaphoresis, fatigue and fever. HENT: Positive for ear pain. Negative for congestion, dental problem, ear discharge, hearing loss, postnasal drip, sinus pressure, sinus pain, sneezing, sore throat and trouble swallowing. Right ear pain 6/10 clogged and muffled feeling Eyes: Negative for pain, discharge, redness and itching. Respiratory: Negative for cough, chest tightness and shortness of breath. Cardiovascular: Negative for chest pain. Gastrointestinal: Negative for abdominal pain, anorexia, change in bowel habit, diarrhea, nausea and vomiting. Genitourinary: Negative for difficulty urinating. Musculoskeletal: Negative for arthralgias, joint swelling, myalgias and neck pain. Skin: Negative for color change, pallor, rash and wound. Allergic/Immunologic: Positive for environmental allergies. Negative for food allergies. Neurological: Negative for vertigo, weakness, numbness and headaches. Psychiatric/Behavioral: Negative for agitation, behavioral problems and confusion. Objective BP 122/80 Pulse 97 Temp 37.4 C (99.3 F) Resp 21 Wt 69.4 kg (153 lb) SpO2 99% Physical Exam Constitutional: General: She is not in acute distress. Appearance: Normal appearance. She is normal weight. She is not ill-appearing or toxic-appearing. HENT: Head: Normocephalic. Right Ear: Tympanic membrane, ear canal and external ear normal. There is no impacted cerumen. Left Ear: Tympanic membrane, ear canal and external ear normal. There is no impacted cerumen. Nose: Nose normal. No congestion or rhinorrhea. Mouth/Throat: Mouth: Mucous membranes are moist. Pharynx: No oropharyngeal exudate or posterior oropharyngeal erythema. Eyes: General: No scleral icterus. Right eye: No discharge. Left eye: No discharge. Extraocular Movements: Extraocular movements intact. Conjunctiva/sclera: Conjunctivae normal. Pupils: Pupils are equal, round, and reactive to light. Cardiovascular: Rate and Rhythm: Normal rate. Pulses: Normal pulses. Heart sounds: Normal heart sounds. Pulmonary: Effort: Pulmonary effort is normal. No respiratory distress. Breath sounds: Normal breath sounds. No wheezing. Chest: Chest wall: No tenderness. Abdominal: Palpations: Abdomen is soft. There is no mass. Tenderness: There is no abdominal tenderness. There is no guarding. Musculoskeletal: General: No swelling, tenderness, deformity or signs of injury. Normal range of motion. Cervical back: Normal range of motion. No rigidity or tenderness. Skin: General: Skin is warm and dry. Capillary Refill: Capillary refill takes less than 2 seconds. Coloration: Skin is not pale. Findings: No erythema or rash. Neurological: General: No focal deficit present. Mental Status: She is alert and oriented to person, place, and time. Sensory: No sensory deficit. Motor: No weakness. Psychiatric: Mood and Affect: Mood normal. Behavior: Behavior normal. Thought Content: Thought content normal. Judgment: Judgment normal. Assessment and Plan ASSESSMENT/PLAN: 1. Eustachian tube dysfunction, right - ICD9: 381.81, ICD10: H69.81 No signs of infection exam Flonase nasal spray and Prednisone Rx sent to pharmacy. Pt educated about seasonal allergy OTC relief - Follow-up with your PCP in 3-5 days if symptoms have not improved or sooner if symptoms worsen - Discussed red flags and need for immediate medical evaluation if any occur. - Discussed supportive care treatment with fluids, rest and analgesia. - Discussed expected course of illness Doris West TEACHING PROVIDER (Physician/PA/SPEECH SCIENTIST) NOTE OF PERSONAL INVOLVEMENT IN CARE: I have personally seen and examined the patient and performed the medical decision-making components. I have reviewed the Advanced Practice Registered Nurse (SPEECH SCIENTIST) Student's documentation and verified the findings in the note as written. Any additions or changes are noted in bold/italics. Signature: Erika Carolina Date: 10/11/2021 Time: 5:33 PM documented in this encounter [facility] 10-11-2021 Instructions Erika Carolina APRN.CAMPBELL - 10/11/2021 5:18 PM EDT The most common cause of Eustachian tube dysfunction is when the tube become swollen (inflamed) and mucus or fluid builds up. This can be caused by a cold, the flu, a sinus infection, or allergies. Some people are at greater risk for Eustachian tube dysfunction. They include: Children. Their tubes are shorter and straighter than those of an adult. This makes it easier for germs to reach the middle ear and for fluid to become trapped there. Also, children s immune systems are not fully developed. This makes it harder for them to fight off infections. People who smoke. Smoking damages the cilia (the tiny hairs that sweep mucus from the middle ear to the back of the nose). This can allow mucus to gather in the tubes. People who are obese. Fatty deposits around the tubes can lead to Eustachian tube dysfunction. How is Eustachian tube dysfunction diagnosed? Your doctor will talk to you about your symptoms and examine you. They will examine your ear canals and eardrums, your nasal passages, and the back of your throat. Can Eustachian tube dysfunction be prevented or avoided? Reduce your risk of developing Eustachian tube dysfunction by treating the underlying cause of the blockage. This is usually allergies, a cold, or the flu. Eustachian tube dysfunction treatment Symptoms of Eustachian tube dysfunction usually go away without treatment. You can do exercises to open up the tubes. This includes swallowing, yawning, or chewing gum. You can help relieve the full ear feeling by taking a deep breath, pinching your nostrils closed, and blowing with your mouth shut. documented in this encounter [facility] Diagnosis Encounter for gynecological examination (general) (routine) without abnormal findings- Primary Screening for cervical cancer Screening for malignant neoplasm of the cervix Encounter for surveillance of contraceptive pills Surveillance of previously prescribed contraceptive pill [facility] Diagnosis Encounter for contraceptive management, unspecified type- Primary [facility] Diagnosis Encounter for IUD insertion- Primary Encounter for insertion of intrauterine contraceptive device [facility] Diagnosis Gastroesophageal reflux disease, unspecified whether esophagitis present- Primary SOB (shortness of breath) Shortness of breath [facility] Diagnosis Bilateral upper abdominal pain Abdominal pain, right upper quadrant [facility] Diagnosis Elevated alkaline phosphatase level- Primary Other nonspecific abnormal serum enzyme levels documented in this encounter [facility] for referral (narrative)* Outpatient Procedure (Routine) - Authorized Specialty Diagnoses / Procedures Referred By Mac barrientos Referred To Contact [facility] Diagnoses Encounter for insertion of intrauterine contraceptive device (IUD) Procedures INSERT INTRAUTERINE DEVICE INTRAUT COPPER CONTRACEPTIVE INSERT INTRAUTERINE DEVICE Shauna aKur APRN.CNP [address] [place] [address] [place] [id number] Referral ID Status Reason Start Date Expiration Date Visits Requested Visits Authorized [id number] Authorized Auto-Generat ed Referral 02/15/2022 02/15/2023 1 1 * Outpatient Procedure (Routine) - Authorized Specialty Diagnoses / Procedures Referred By Mac t Referred To Contact [facility] Diagnoses Encounter for contraceptive management, unspecified type Procedures INSERT INTRAUTERINE DEVICE INTRAUT COPPER CONTRACEPTIVE INSERT INTRAUTERINE DEVICE Miguelina Franks APRN.CNP [address] [place] [address] [address] Referral ID Status Reason Start Date Expiration Date Visits Requested Visits Authorized [id number] Authorized Auto-Generat ed Referral 02/14/2022 02/13/2023 1 1 [facility] for referral (narrative)* Outpatient Procedure (Routine) - Authorized Specialty Diagnoses / Procedures Referred By Mac t Referred To Contact [facility] Diagnoses Encounter for IUD insertion Procedures INSERT INTRAUTERINE DEVICE INTRAUT COPPER CONTRACEPTIVE INSERT INTRAUTERINE DEVICE Miguelina Franks APRN.CNP [address] [place] [address] [facility] [address] [address] Referral ID Status Reason Start Date Expiration Date Visits Requested Visits Authorized [id number] Authorized Auto-Generat ed Referral 2 03/09/2023 1 [facility] Diagnostic Procedure Only (Routine) - Closed Specialty Diagnoses / Procedures Referred By Contmolly t Referred To Contact [facility] Diagnoses Bilateral upper abdominal pain Procedures US ABD RIGHT UPPER QUADRANT US ABDOMINAL REAL TIME W/IMAGE LIMITED Aspen Gordillo PA-C [address] [place] [address] [place] [id number] Referral ID Status Reason Start Date Expiration Date V isits Requested Visits Authorized [id number] Closed Auto-Generate d Referral 02/05/2023 03/06/2024 1 1 [facility] Medications Administered Section Inactive Administered Medications - up to 3 most recent administrations Medication Order MAR Action Action Date Dose Rate Site copper intrauterine device 380 square mm (PARAGARD) 1 Intra Uterine Device, INTRAUTERINE, ONCE (UP TO 30 DAYS AMB), 1 dose, On Sat03/09/22 at 1000 Given 03/09/2022 9:47 AM EST 1 Intra Uterine Device Summary Purpose Family History No Family History Records Found Advance Directives No Advanced Directives Records Found Additional Source Comments Source Comments (unrecognize d section and content) In the event this informatio n is protected by the Federal Confidentiality of Alcohol and Drug Abuse Patient Records regulations: The Federal rules restrict any use of the information to criminally investigate or prosecute any alcohol or drug abuse patient.[facility] event this information is protected by the Federal Confidentiality of Alcohol and Drug Abuse Patient Records regulations: The Federal rules restrict any use of the information to criminally investigate or prosecute any alcohol or drug abuse patient.[facility] event this information is protected by the Federal Confidentiality of Alcohol and Drug Abuse Patient Records regulations: The Federal rules restrict any use of the information to criminally investigate or prosecute any alcohol or drug abuse patient.[facility] event this information is protected by the Federal Confidentiality of Alcohol and Drug Abuse Patient Records regulations: The Federal rules restrict any use of the information to criminally investigate or prosecute any alcohol or drug abuse patient.[facility] event this information is protected by the Federal Confidentiality of Alcohol and Drug Abuse Patient Records regulations: The Federal rules restrict any use of the information to criminally investigate or prosecute any alcohol or drug abuse patient.[facility] event this information is protected by the Federal Confidentiality of Alcohol and Drug Abuse Patient Records regulations: The Federal rules restrict any use of the information to criminally investigate or prosecute any alcohol or drug abuse patient.[facility] event this information is protected by the Federal Confidentiality of Alcohol and Drug Abuse Patient Records regulations: The Federal rules restrict any use of the information to criminally investigate or prosecute any alcohol or drug abuse patient.[facility] the event this information is protected by the Federal Confidentiality of Alcohol and Drug Abuse Patient Records regulations: The Federal rules restrict any use of the information to criminally investigate or prosecute any alcohol or drug abuse patient.[facility] the event this information is protected by the Federal Confidentiality of Alcohol and Drug Abuse Patient Records regulations: The Federal rules restrict any use of the information to criminally investigate or prosecute any alcohol or drug abuse patient.[facility] Reason for Visit (unrecogniz ed section and content) Reason Comments Yearly Exam Reason Onset Date Comments Refill Request 01/12/2022 Reason Onset Date Comments Insertion Of IUD 03/09/2022 Specialty Diagnoses / Procedures Referred By Mac barrientos Referred To Contact [facility] Diagnoses Encounter for insertion of intrauterine contraceptive device (IUD) Procedures INSERT INTRAUTERINE DEVICE INTRAUT COPPER CONTRACEPTIVE INSERT INTRAUTERINE DEVICE Shauna Kaur, [place]AL[place].STUDENT LIFE ADVISOR [address] [place] [address] [facility] [address] [place] [address] Referral ID Status Reason Start Date Expiration Date V isits Requested Visits Authorized [id number] Closed Auto-Generate d Referral 02/15/2022 02/15/2023 1 1 Reason Comments Radiology US Specialty Diagnoses / Procedures Referred By Mac barrientos Referred To Contact [facility] Diagnoses Bilateral upper abdominal pain Procedures US ABD RIGHT UPPER QUADRANT US ABDOMINAL REAL TIME W/IMAGE LIMITED Aspen Gordillo PA-C [address] [facility] [place] [address] [place] [id number] Referral ID Status Reason Start Date Expiration Date V isits Requested Visits Authorized [id number] Closed Auto-Generate d Referral 02/05/2023 03/06/2024 1 1 Care Teams (unrecognized sec tion and content) Heavy Equipment Plumbing Supervisor Relationship Specialty Start Date End Date Karin Lopes MD [address] [address] PCP - General Family Medicine 12/28/22 Heavy Equipment Plumbing Supervisor Relationship Specialty Start Date End Date Karin Lopes MD [address] [facility] [address] [place] [address] PCP - General Family Medicine 12/28/22 INFORMATION SOURCE (unrecogn ized section and content) FOR RECORDS PERTAINING TO PATIENTS WHO ARE OR HAVE BEEN ENROLLED IN A CHEMICAL DEPENDENCY/SUBSTANCEABUSE PROGRAM, SOME INFORMATION MAY BE OMITTED. This clinical summary was aggregated from multiple sources. Caution should be exercised in using it in the provision of clinical care. This summary normalizes information from multiple sources, and as a consequence, information in this document may materially change the coding, format and clinical context of patient data. In addition, data may be omitted in some cases. CLINICAL DECISIONS SHOULD BE BASED ON THE PRIMARY CLINICAL RECORDS. [facility], [facility]. provides no warranty or guarantee of the accuracy or completeness of information in this document.
[2023-06-22 01:20] VITALS: BP 119/90; PULSE 89; RESP 14; O2SAT 100
--- NOTE | 2023-06-22 01:21 | EX.ED.DYSGE1 ---
HPI History of Present Illness Chief Complaint: Syncope Detail of Chief Complaint: Patient developed discomfort in the chest epigastric area with near syncope Informant: patient and spouse/S.O. Onset/Context/Timing Onset: Today and Hours Context: Sudden Onset Timing: Intermittent Quality: Near syncope Location: Sitting in recliner Current Severity: Gone Maximum Severity: Moderate Worsened by: Patient was experiencing pressure in her ear and discomfort in the epigastr Relieved by: Not applicable Associated Symptoms Associated Symptoms: Nausea Narrative Narrative: Patient is a 33-year-old woman with history of Sjogren's, celiac disease, anemia, Raynaud's phenomenon and GERD. She does have history of tachycardia on beta-wilda. She was sitting. She experienced pressure ear discomfort in her epigastric area associated with near syncope. She did feel nauseous. She was not diaphoretic. The room was dark and her nor her were aware that she was paler than normal. She denies black or maroon-colored stool. She denies chest pain, shortness of breath. She denies history of VTE. She is on no hormonal therapy. She has no risk factors for VTE. She denies leg pain, swelling discoloration. Patient does have heavy menstrual cycles. Apparently her mother had heavy menstrual cycles. She has never been tested for von Willebrand's disease. Patient denies headache, visual, ocular auditory symptoms. Prior similar symptoms: No Recent Illness/Hospitalization: No [facility] Medical History Celiac disease Sjogren syndrome with gastrointestinal involvement Tachycardia Home Medications omeprazole 20 mg capsule,delayed release 20 mg PO DAILY #30 CAPSULES 04/24/22 [Rx Last Taken Unknown] metoprolol succinate 25 mg tablet,extended release 24 hr 25 mg PO BID 06/21/23 [History Last Taken Unknown] Allergy/AdvReac Type Severity Reaction Status Date / Time amoxicillin Allergy Hives Verified 06/21/23 23:11 Penicillins Allergy Hives Verified 06/21/23 23:18 Social History (Updated 06/22/23 @ 03:[address] Yefri Trent MD) household members: spouse Smoking Status: Never smoker substance use type: does not use ROS ROS ED Constitutional Constitutional ED: Denies chills, fever(s), subjective or sweats Eyes Eyes: Denies blurry vision, change in vision or diplopia ENT ENT ED: Denies ear pain, rhinorrhea or sore throat Cardiovascular Cardiovascular: Denies chest pain, orthopnea, palpitations, paroxysmal nocturnal dyspnea or racing heartbeat Respiratory/Chest Respiratory/Chest: Denies cough, dyspnea, dyspnea on exertion, orthopnea or paroxysmal nocturnal dyspnea Gastrointestinal Gastrointestinal: Reports abdominal pain and nausea; Denies diarrhea, melena or vomiting Genitourinary Genitourinary ED: Denies dysuria, hematuria or urinary frequency Musculoskeletal Musculoskeletal: Denies arthralgias, back pain, myalgias or neck pain Integumentary Denies rash Neurologic Neurologic: Reports weakness Psychiatric Psychiatric: Denies anxiety or depression Endocrine Endocrinology: Denies cold intolerance or heat intolerance Hematologic/Lymphatic Hematologic/Lymphatic: Reports systems reviewed and no addt'l complaints, except as documented EXAM Physical Exam Const Vital Signs: 06/21/23 23:12 06/21/23 23:40 06/21/23 23:40 Temperature 98.3 F Temperature Source Temporal Pulse Rate 102 H 94 Respiratory Rate 16 18 Respiratory Effort Normal Respiratory Pattern Normal Blood Pressure 141/78 H 128/64 H Blood Pressure Mean 99 85 Pulse Ox 100 99 Oxygen Delivery Method Room Air Room Air 06/22/23 01:20 06/22/23 01:36 Temperature 98.2 F Temperature Source Pulse Rate 89 89 Respiratory Rate 14 16 Respiratory Effort Respiratory Pattern Blood Pressure 119/90 H 114/74 Blood Pressure Mean 99 87 Pulse Ox 100 98 Oxygen Delivery Method Room Air Positive well nourished and well developed General Appearance ED: well developed, NAD and pallor; Negative for cyanotic or diaphoretic HEENT Reports moist mucous membranes HEENT Narrative: Head is atraumatic and normocephalic. Ears normal. TMs normal. Nares patent. Posterior pharynx out erythema or exudate. Uvula midline. No deviation with protrusion. Eyes PERRL and EOMs intact bilaterally General Eye ED: Negative for pale conjunctiva or scleral icterus Neck no lymphadenopathy, supple and no JVD Neck Narrative: Trachea is midline. There is no carotid bruits. Resp normal respiratory effort and clear to auscultation bilaterally Cardio regular rate, regular rhythm, S1 normal heart sound, S2 normal heart sound and no murmurs GI normal to inspection, nondistended, normoactive bowel sounds, non-tender, non-distended and no masses; Negative for hepatosplenomegaly Palpation: soft Back/Spine no CVA tenderness Extremity normal to inspection Extremity Narrative: There is no asymmetry, swelling, discoloration, leg vein distention, palpable cords or tenderness along the distribution of the deep venous system. General Extremety ED: Negative for edema or tenderness General Extremity: Negative for edema Neuro oriented x3, CN's II-XII intact bilaterally and no sensory deficits noted Sensorium / Orientation: alert Motor Exam: strength 5/5 throughout Psych mental status grossly normal Skin no rashes or lesions noted, no wounds and skin turgor normal General Skin Exam: pallor; Negative for elasticity normal or jaundice MDM MDM MDM Narrative Medical decision making narrative: With pallor need to be concerned. Blood loss. CBC was obtained. BMP was obtained to assess for electrolyte abnormality and specifically potassium and calcium. EKG was obtained per protocol. EKG was normal. Prior laboratory results and records were reviewed. History & Record Review Additional record(s) reviewed:: Prior labs Lab Data Attestation: I reviewed the patient's lab results. Lab results narrative: Patient's hemoglobin is down approximately 3 g from her baseline. Indices are low end of normal and low. Basic metabolic panel reveals normal BUN and creatinine ratio which indicates this is a slow chronic loss and not GI. Most like this is due to her abnormal heavy menstrual bleeding. She was instructed to follow-up with her nurse practitioner affiliated with the [facility]. Labs: Laboratory Results - last 24 hr 06/21/23 23:29 WBC 10.9 RBC 4.49 Hgb 11.8 L Hct 37.0 MCV 82.4 MCH 26.3 L MCHC 31.9 L RDW Std Deviation 38.1 RDW Coeff of Jean-Pierre 12.6 Plt Count 389 MPV 11.1 Immature Gran % (Auto) 0.300 Neut % (Auto) 69.2 Lymph % (Auto) 20.8 Sterling % (Auto) 5.4 Eos % (Auto) 3.8 Baso % (Auto) 0.5 Absolute Neuts (auto) 7.6 Absolute Lymphs (auto) 2.27 Nucleated RBC % 0 Sodium 139 Potassium 3.4 L Chloride 103 Carbon Dioxide 28.0 Anion Gap 8 BUN 17 Creatinine 0.77 Estim Creat Clear Calc 95.26 Est GFR (MDRD) Af Amer 112 Est GFR (MDRD) Non-Af 93 BUN/Creatinine Ratio 22.0 H Glucose 108 H Calcium 9.3 Treatment and Re-Evaluation :: Patient was instructed to take Metamucil and iron. Metamucil to prevent constipation iron because of the anemia. Discharge Plan Triage Chief Complaint: Syncope ED Provider: Yefri Trent Dx/Rx/DC Orders Clinical Impression: History of Sjogren's disease, History of celiac disease, Anemia, History of heavy vaginal bleeding, Near syncope, Raynaud's phenomenon (by history or observed), Hx of gastroesophageal reflux (GERD) Instructions: Raynaud Disease, ED Near-Fainting- Vagal Reaction Prescriptions: No Action omeprazole [omeprazole] 20 MG capsule 20 mg PO DAILY Qty: 30 0RF metoprolol succinate 25 mg tablet extended release 24 hr 25 mg PO BID Primary Care Provider: Audi Lopes Referrals: Audi Lopes MD [Primary Care Provider] - 1-2 Weeks Activity Restrictions/Additional Instructions: 1. Take one 325 mg iron sulfate tablet twice a day for the next 30 days 2. Take 1-2 doses of Metamucil to prevent constipation from iron tablets 3. Follow-up with your [employer] nurse practitioner Disposition Disposition: Home, Self Care Discharge Date/Time: 06/22/23 01:37
[2023-06-22 01:36] VITALS: BP 114/74; PULSE 89; RESP 16; TEMP 36.8; O2SAT 98
== END 2023-06-22 01:37 | disposition home or self-care (01) ==
PROVIDERS: Emergency Provider Emergency Medicine; PCP Family Medicine; Visit Provider Emergency Medicine
DX: R55 Syncope and collapse (principal); D64.9 Anemia, unspecified; Z79.899 Other long term (current) drug therapy
CPT/HCPCS: 80048; 85025; 93005; 99283; A4216

== ENCOUNTER → 2023-08-08 | Outpatient (CLI) | payer OTHER, SELFPAY ==
[2023-08-08 21:54] LABS: Absolute Lymphocyte Count 1.84 X10^3/uL (0.83-4.51); Absolute Neutrophil Count 9.8 X10^3/uL (2.0-7.7); Basophil# 0.03 X10^3/uL; Basophil% 0.2 % (0-1); Eosinophil# 0.44 X10^3/uL; Eosinophils% 3.5 % (0-5); Hematocrit 40.2 % (37-47); Hemoglobin 12.9 g/dL (12.0-15.0); Lymphocyte # 1.84 X10^3/ul (0.83-4.51); Lymphocyte % 14.5 % (19-41); Mean Corp Hgb Conc 32.1 g/dL (32-36); Mean Corpuscular Hgb 27.7 pg (27.0-32.0); Mean Corpuscular Volume 86.3 fL (81-99); Mean Platelet Vol. 11.8 fl (6.2-12.0); Monocyte# 0.52 X10^3/uL; Monocyte% 4.1 % (0-10); NRBC Flagged by Analyzer 0 % (0-5); Neutrophil # 9.83 X10^3/uL (2.7-7.7); Neutrophil % 77.4 % (47-70); Platelet Count 337 K/mm3 (150-450); RBC Distribution Width CV 14.4 % (11.6-14.6); RBC Distribution Width SD 45.9 fl (35.1-43.9); Red Blood Count 4.66 M/mm3 (4.2-5.4); White Blood Count 12.7 K/mm3 (4.4-11.0)
[2023-08-08 22:08] LABS: Vitamin D,25 Hydroxy 50.6 ng/mL
[2023-08-08 22:13] LABS: AST(SGOT) 14 U/L (15-37); Alanine Aminotransfer ALT/SGPT 17 U/L (13-56); Albumin, Serum 3.9 g/dL (3.2-5.0); Alkaline Phosphatase 116 U/L (45-117); Anion Gap 4 (5-15); BUN 15 mg/dL (7-18); BUN/Creat Ratio 24.4 RATIO (10-20); Calcium,Total 9.3 mg/dL (8.5-10.1); Chloride 106 mmol/L (98-107); Creatinine, Serum 0.61 mg/dL (0.55-1.02); EST Glomerular Filtration Rate 120 mL/min (>60); Est Glom Filt Rate - Afr Amer 146 mL/min (>60); Globulin 3.9 g/dL (2.2-4.2); Glucose 108 mg/dL (74-106); Iron Binding Capacity,Total 358 ug/dL (250-450); Potassium 3.9 mmol/L (3.5-5.1); Protein, Total 7.8 g/dL (6.4-8.2); Sodium Level 139 mmol/L (136-145)
[2023-08-10 05:07] LABS: Transferrin 300 mg/dL (192-364)
== END | disposition home or self-care (01) ==
PROVIDERS: PCP Family Medicine; Referring Provider Nurse Practitioner; Visit Provider Nurse Practitioner
DX: R79.0 Abnormal level of blood mineral (principal); R53.83 Other fatigue; D64.9 Anemia, unspecified; K21.9 Gastro-esophageal reflux disease without esophagitis; K90.0 Celiac disease; Z87.19 Personal history of other diseases of the digestive system
CPT/HCPCS: 80053; 82306; 83550; 84466; 85025

== ENCOUNTER → 2023-12-27 | Outpatient (CLI) | payer OTHER, SELFPAY ==
[2023-12-27 11:06] LABS: Cholesterol 180 mg/dL (200); Ferritin 45 ng/mL (8-252); High Density Lipoprotein 60 mg/dL; Triglycerides 74 mg/dL; Very Low Density Lipoprotein 15 mg/dL (5-40)
== END | disposition home or self-care (01) ==
LOC: MFPLAB 09:21
PROVIDERS: PCP Family Medicine; Visit Provider Family Medicine
DX: D50.9 Iron deficiency anemia, unspecified (principal); Z13.220 Encounter for screening for lipoid disorders
CPT/HCPCS: 36415; 80061; 82728

== ENCOUNTER → 2024-03-21 | Outpatient (CLI) | payer OTHER, SELFPAY ==
[2024-03-21 08:32] LABS: Basophil# 0.05 X10^3/uL; Basophil% 0.5 % (0-1); Eosinophil# 0.38 X10^3/uL; Eosinophils% 3.7 % (0-5); Hemoglobin 14.6 g/dL (12.0-15.0); Lymphocyte % 13.5 % (19-41); Mean Corpuscular Hgb 29.4 pg (27.0-32.0); Mean Corpuscular Volume 86.7 fL (81-99); Mean Platelet Vol. 10.4 fl (6.2-12.0); Monocyte% 4.8 % (0-10); NRBC Flagged by Analyzer 0 % (0-5); Neutrophil % 77.1 % (47-70); Platelet Count 356 K/mm3 (150-450); RBC Distribution Width CV 12.3 % (11.6-14.6); RBC Distribution Width SD 38.7 fl (35.1-43.9); Red Blood Count 4.96 M/mm3 (4.2-5.4); White Blood Count 10.4 K/mm3 (4.4-11.0)
[2024-03-21 08:50] LABS: Erythrocyte Sedimentation Rate 12 mm/hr (0-30)
[2024-03-21 09:17] LABS: ALB/GLOB Ratio 1.1 RATIO (0.9-2.4); AST(SGOT) 12 U/L (15-37); Alanine Aminotransfer ALT/SGPT 18 U/L (13-56); Albumin, Serum 4.1 g/dL (3.2-5.0); Alkaline Phosphatase 99 U/L (45-117); Anion Gap 4 (5-15); BUN 8 mg/dL (7-18); BUN/Creat Ratio 13.6 RATIO (10-20); CRP 4.79 mg/L (0.0-3.0); Calcium,Total 9.4 mg/dL (8.5-10.1); Chloride 106 mmol/L (98-107); Creatinine, Serum 0.59 mg/dL (0.55-1.02); EST Glomerular Filtration Rate 126 mL/min (>60); Est Glom Filt Rate - Afr Amer 152 mL/min (>60); Ferritin 94 ng/mL (8-252); Globulin 3.7 g/dL (2.2-4.2); Glucose 94 mg/dL (74-106); Magnesium 1.9 mg/dL (1.6-2.6); Potassium 3.7 mmol/L (3.5-5.1); Protein, Total 7.8 g/dL (6.4-8.2); Sodium Level 138 mmol/L (136-145)
[2024-03-21 13:30] LABS: HIV - WCH Non-Reactive (Nonreactive)
[2024-03-25 00:07] LABS: Absolute CD4 Helper 536 /uL (359-1519); Basophils (Absolute) 0.1 x10E3/uL (0.0-0.2); CD4/CD8 Ratio 2.15 (0.92-3.72); Complement C3 156 mg/dL (82-167); Eosinophils 4 % (Not Estab.); Eosinophils (Absolute) 0.4 x10E3/uL (0.0-0.4); Hematocrit 43.7 % (34.0-46.6); Hemoglobin 14.5 g/dL (11.1-15.9); Immature Granulocytes 0 % (Not Estab.); Immature Granulocytes Absolute 0 x10E3/uL (0.0-0.1); Lyme IgG P18 Ab Absent (.); Lyme IgG P23 Ab Absent (.); Lyme IgG P28 Ab Absent (.); Lyme IgG P30 Ab Absent (.); Lyme IgG P39 Ab Absent (.); Lyme IgG P41 Ab Absent (.); Lyme IgG P45 Ab Absent (.); Lyme IgG P58 Ab Absent (.); Lyme IgG P66 Ab Absent (.); Lyme IgG P93 Ab Absent (.); Lyme IgG WB Interpretation Negative (.); Lyme IgM P23 Ab Absent (.); Lyme IgM P39 Ab Absent (.); Lyme IgM P41 Ab Absent (.); Lyme IgM WB Interpretation Negative (.); Lymphs 14 % (Not Estab.); Lymphs (Absolute) 1.4 x10E3/uL (0.7-3.1); MCH 29.3 pg (26.6-33.0); MCHC 33.2 g/dL (31.5-35.7); MCV 88 fL (79-97); Monocytes 5 % (Not Estab.); Monocytes (Absolute) 0.5 x10E3/uL (0.1-0.9); Neutrophils 76 % (Not Estab.); Neutrophils (Absolute) 7.8 x10E3/uL (1.4-7.0); PROEL- A/G Ratio 1.1 (0.7-1.7); PROEL- Albumin 3.8 g/dL (2.9-4.4); PROEL- Alpha-1 Globulin 0.3 g/dL (0.0-0.4); PROEL- Alpha-2 Globulin 0.9 g/dL (0.4-1.0); PROEL- Gamma Globulin 1.4 g/dL (0.4-1.8); PROEL- Globulin, Total 3.6 g/dL (2.2-3.9); PROEL- TOTAL PROTEIN 7.4 g/dL (6.0-8.5); PROEL-M-Spike Not Observed g/dL (Not Observed); Percent % CD4 Pos. Lymph. 38.3 % (30.8-58.5); Percent % CD8 Pos. Lymph. 17.8 % (12.0-35.5); Platelets 362 x10E3/uL (150-450); RBC Count 4.95 x10E6/uL (3.77-5.28); WBC Count 10.1 x10E3/uL (3.4-10.8)
[2024-03-25 11:07] LABS: Anti-Nuclear Antibody Test Negative (.)
== END | disposition home or self-care (01) ==
PROVIDERS: PCP Family Medicine; Referring Provider Family Medicine; Visit Provider Family Medicine
DX: D50.9 Iron deficiency anemia, unspecified (principal); D72.829 Elevated white blood cell count, unspecified; R53.83 Other fatigue; I47.19 Other supraventricular tachycardia
CPT/HCPCS: 36415; 80053; 82627; 82728; 83735; 84165; 85025; 85652; 86038; 86140; 86160; 86360; 86617; 86703; 82626

== ENCOUNTER → 2024-12-28 | Outpatient (CLI) | payer OTHER, SELFPAY ==
[2024-12-28 12:03] LABS: Hematocrit 45.1 % (37-47); Hemoglobin 15.0 g/dL (12.0-15.0); Immature Granulocytes Count 0.050 X10^3/uL (0.0-0.0); Mean Corp Hgb Conc 33.3 g/dL (32-36); Mean Corpuscular Volume 87.6 fL (81-99); Mean Platelet Vol. 11.6 fl (6.2-12.0); NRBC Flagged by Analyzer 0 % (0-5); Platelet Count 337 K/mm3 (150-450); RBC Distribution Width CV 12.2 % (11.6-14.6); RBC Distribution Width SD 39.5 fl (35.1-43.9); Red Blood Count 5.15 M/mm3 (4.2-5.4); White Blood Count 10.8 K/mm3 (4.4-11.0)
[2024-12-28 13:01] LABS: Iron 30 ug/dL (50-170); Vitamin B12 911 pg/mL (180-914)
== END | disposition home or self-care (01) ==
LOC: MFPLAB 09:47
PROVIDERS: PCP Family Medicine
DX: D64.9 Anemia, unspecified (principal)
CPT/HCPCS: 36415; 82607; 83540; 85025